=== PATIENT | male | born 1990 | race Two or more races ===

== ENCOUNTER 2016-10-26 20:06 | Emergency (ER) | payer OTHER ==
[~2016-10-26] VITALS: Ht 177.8 cm; Wt 86.2 kg
[~2016-10-26 20:06] MED LIST: NKM; PRILOSEC10 M1 ORAL
[2016-10-26 20:27] VITALS: BP 141/85
[2016-10-26 21:14] LABS: CALCIUM 9.5 mg/dL (8.6-10.2); CHLORIDE 97 mEQ/L (98-107); CREATININE 0.9 mg/dL (0.7-1.2); GLOMERULAR FILTRATION RATE > 60 mL/min (>60); HEMOLYSIS 5; POTASSIUM 3.6 mEQ/L (3.4-4.9); SODIUM 139 mEQ/L (135-145)
[2016-10-26] MEDS ORDERED: CORTISPORIN EAR10 ML RIGHT EAR (21:25)
[2016-10-26 21:31] LABS: ANION GAP 15 (5-15); CARBON DIOXIDE 27 mEQ/L (20-30)
[2016-10-26 21:43] LABS: BASOPHILS % (AUTO) 1.1 % (0.0-2.0); EOSINOPHILS % (AUTO) 0.7 % (0.0-3.0); LYMPHOCYTES % (AUTO) 35.8 % (20.0-45.0); MEAN CORPUSCULAR HEMOGLOBIN 28.5 PG (27.0-31.0); MEAN CORPUSCULAR HGB CONC 33.5 G/DL (32.0-36.0); MEAN CORPUSCULAR VOLUME 85 FL (80-99); MEAN PLATELET VOLUME 7.6 FL (6.5-10.1); MONOCYTES % (AUTO) 5.7 % (1.0-10.0); NEUTROPHILS % (AUTO) 56.8 % (45.0-75.0); PLATELET COUNT 214 K/UL (150-450); RED BLOOD COUNT 5.59 M/UL (4.70-6.10); RED CELL DISTRIBUTION WIDTH 11.5 % (11.6-14.8); WHITE BLOOD COUNT 7.9 K/UL (4.8-10.8)
[2016-10-26 21:59] VITALS: BP 129/80
--- NOTE | 2016-10-28 15:14 | Emergency Room Report ---
History of Present Illness General Chief Complaint: Generalized Weakness Source: Patient Present Illness HPI Patient present with complaints of dizziness patient has had off-and-on symptoms for over the past month Denies any headache Denies any chest pain Denies any back or flank pain Patient reports that he just there at a computer screen He also reports that he was cleaning his right ear And he said he might of injured it as there was blood coming out of it since Friday The dizziness however presented before this denies any dysuria frequency denies any neck pain or photophobia denies any change in medications he does feel that when he gets up in the morning the symptom is worse and also by noontime Allergies: Coded Allergies: No Known Allergies (Unverified , 04/28/16) Patient History Past Medical History: see triage record Pertinent Family History: none Reviewed Nursing Documentation: PMH: Agreed, PSxH: Agreed Nursing Documentation-PMH Past Medical History: No Stated History Review of Systems All Other Systems: negative except mentioned in HPI Physical Exam Vital Signs Date Time Temp Pulse Resp B/P Pulse Ox O2 Delivery O2 Flow Rate FiO2 10/26/16 20:12 98.2 75 16 133/93 100 Room Air Sp02 EP Interpretation: reviewed, normal General Appearance: well appearing, no apparent distress Head: normocephalic, atraumatic Eyes: bilateral eye EOMI, bilateral eye PERRL ENT: hearing grossly normal, normal pharynx, uvula midline, other - There was some dried blood in the canal, the tympanic membrane does show what appears to be findings in line with a partial perforation on the medial aspect Neck: full range of motion, supple, no meningismus, no bony tend Respiratory: lungs clear, normal breath sounds, no rhonchi, no respiratory distress, no retraction, no accessory muscle use Cardiovascular #1: normal peripheral pulses, regular rate, rhythm, no edema, no gallop, no JVD, no murmur Gastrointestinal: normal bowel sounds, non tender, soft, no mass, no organomegaly, non-distended, no guarding, no hernia, no pulsatile mass, no rebound Genitourinary: no CVA tenderness Musculoskeletal: normal inspection Neurologic: oriented x3, responsive, occupational analyst III-XII nml as tested, motor strength/ tone normal, sensory intact Psychiatric: mood/affect normal Skin: normal color, no rash, warm/dry, palpation normal Lymphatic: normal inspection, no adenopathy Medical Decision Making Diagnostic Impression: Primary Impression: dizziness Additional Impression: tm rupture ER Course Patient has multiple differentials considered Baseline blood work was initiated Patient is also on the teletypesetter monitor showing a sinus rhythm At this time continues to do well patient was given referral for the right eardrum Otherwise remains asymptomatic and hemodynamically stable And appropriate for close outpatient followup Labs Test 10/26/16 20:44 White Blood Count 7.9 K/UL (4.8-10.8) Red Blood Count 5.59 M/UL (4.70-6.10) Hemoglobin 15.9 G/DL (14.2-18.0) Hematocrit 47.5 % (42.0-52.0) Mean Corpuscular Volume 85 FL (80-99) Mean Corpuscular Hemoglobin 28.5 PG (27.0-31.0) Mean Corpuscular Hemoglobin Concent 33.5 G/DL (32.0-36.0) Red Cell Distribution Width 11.5 % (11.6-14.8) Platelet Count 214 K/UL (150-450) Mean Platelet Volume 7.6 FL (6.5-10.1) Neutrophils (%) (Auto) 56.8 % (45.0-75.0) Lymphocytes (%) (Auto) 35.8 % (20.0-45.0) Monocytes (%) (Auto) 5.7 % (1.0-10.0) Eosinophils (%) (Auto) 0.7 % (0.0-3.0) Basophils (%) (Auto) 1.1 % (0.0-2.0) Sodium Level 139 mEQ/L (135-145) Potassium Level 3.6 mEQ/L (3.4-4.9) Chloride Level 97 mEQ/L (98-107) Carbon Dioxide Level 27 mEQ/L (20-30) Anion Gap 15 (5-15) Blood Urea Nitrogen 8 mg/dL (7-23) Creatinine 0.9 mg/dL (0.7-1.2) Estimat Glomerular Filtration Rate > 60 mL/min (>60) Glucose Level 100 mg/dL (74-106) Calcium Level 9.5 mg/dL (8.6-10.2) Rhythm Strip Diag. Results EP Interpretation: yes Rate: 66 Rhythm: NSR, no PVC's, no ectopy Last Vital Signs Date Time Temp Pulse Resp B/P Pulse Ox O2 Delivery O2 Flow Rate FiO2 10/26/16 21:59 98.0 70 16 129/80 99 Room Air Status: improved Disposition: HOME, SELF-CARE Condition: Improved Scripts Neomycin/Polymyxin B Sulf/Hc* (CORTISPORIN EAR SOLUTION*) 10 Ml Solution 4 DROP RIGHT EAR QID for 5 Days, #10 ML 0 Refills Prov: GOLDIE GOLDSMITH D.O. 10/26/16 Referrals: [facility] (PCP) Patient Instructions: Dizziness, [id number], Eardrum Perforation, Easy-to- Read Additional Instructions: Patient is provided with the discharge instructions notified to follow up with primary doctor in the next 2-3 days otherwise return to the er with any worsening symptoms. GOLDIE GOLDSMITH D.O. Oct 28, 2016 15:14
== END 2016-10-26 22:00 | disposition home or self-care (01) ==
LOC: EMR 20:25
DX: R42 Dizziness and giddiness (principal); H72.91 Unspecified perforation of tympanic membrane, right ear
CPT/HCPCS: 36415; 80048; 85025; 99283

== ENCOUNTER → 2019-05-26 | Emergency (ER) | payer MEDICAID, OTHER ==
[~2019-05-26] VITALS: Ht 177.8 cm; Wt 83.9 kg
[~2019-05-26] MED LIST changes: +CORTISPORIN EAR10 ML RIGHT EAR; +TYLENOL EXTRA500 MG ORAL; +VOLTAREN100 G1 TP; +ZANTAC150 MG ORAL
[2019-05-26 15:07] VITALS: BP 136/73
--- NOTE | 2019-05-26 15:37 | Emergency Room Report ---
History of Present Illness General Chief Complaint: Pain Present Illness HPI 28-year-old male with no significant past medical history here complaining of 5 out of 10 pain in left shoulder that started 3 days ago. Patient denies heavy lifting, fall or injury. Patient reports that the pain is worse after sitting down or eating. Patient had an endoscopy done yesterday and was diagnosed with gastritis as well as hiatal hernia. Patient was prescribed omeprazole however has not started taking the medication yet as he has taken his medication the past and does not like how it makes him feel. Patient denies any pain radiation , tingling numbness. Has not taken medication for pain. Sitting comfortably denies chest pain, shortness of breath, palpitation, abdominal pain, nausea vomiting. Denies diarrhea, fever chills. Allergies: Coded Allergies: No Known Allergies (Unverified , 04/28/16) Patient History Past Medical History: see triage record Past Surgical History: unable to obtain Pertinent Family History: none Immunizations: UTD Reviewed Nursing Documentation: PMH: Agreed; PSxH: Agreed Review of Systems All Other Systems: negative except mentioned in HPI Physical Exam Vital Signs Date Time Temp Pulse Resp B/P (MAP) Pulse Ox O2 Delivery O2 Flow Rate FiO2 05/26/19 15:07 97.9 67 16 136/73 (94) 97 Room Air Sp02 EP Interpretation: reviewed, normal General Appearance: no apparent distress, alert, GCS 15, non-toxic Head: normocephalic, atraumatic Eyes: bilateral eye normal inspection, bilateral eye PERRL ENT: hearing grossly normal, normal pharynx, no angioedema, normal voice Neck: full range of motion, supple Respiratory: chest non-tender, lungs clear, normal breath sounds, speaking full sentences Cardiovascular #1: regular rate, rhythm, no edema Gastrointestinal: normal bowel sounds, non tender, soft, non-distended, no guarding, no rebound Genitourinary: normal inspection, no CVA tenderness Musculoskeletal: normal inspection, back normal, digits/nails normal, gait/ station normal, normal range of motion, non-tender, other - no impingement sign noted Neurologic: alert, oriented x3, responsive, motor strength/tone normal, sensory intact, speech normal Psychiatric: judgement/insight normal, memory normal, mood/affect normal, no suicidal/homicidal ideation Skin: no rash Lymphatic: no adenopathy Medical Decision Making PA Attestation All my diagnosis and treatment plans were reviewed ad discussed with my supervising physician Dr. Nari Diagnostic Impression: Primary Impression: Left shoulder strain Additional Impression: Gastritis ER Course 28-year-old male with no significant past medical history here complaining of 5 out of 10 pain in left shoulder that started 3 days ago. Patient denies heavy lifting, fall or injury. Patient reports that the pain is worse after sitting down or eating. Patient had an endoscopy done yesterday and was diagnosed with gastritis as well as hiatal hernia. Patient was prescribed omeprazole however has not started taking the medication yet as he has taken his medication the past and does not like how it makes him feel. Patient denies any pain radiation , tingling numbness. Has not taken medication for pain. Sitting comfortably denies chest pain, shortness of breath, palpitation, abdominal pain, nausea vomiting. Denies diarrhea, fever chills. Ddx considered but are not limited to : Shoulder sprain versus strain versus fracture, gastritis, hiatal hernia Vital signs: are WNL, pt. is afebrile H&PE are most consistent with: ORDERS: I offered patient a shoulder x-ray however he denied, ranitidine, Tylenol, Voltaren gel ED INTERVENTIONS: DISCHARGE: At this time pt. is stable for d/c to home. Will provide printed patient care instructions, and any necessary prescriptions. Care plan and follow up instructions have been discussed with the patient prior to discharge. Patient to follow-up with her primary care provider worsening symptoms return to the emergency room at this time it is musculoskeletal and also referred pain from gastritis if tingling or numbness further imaging recommended. Last Vital Signs Date Time Temp Pulse Resp B/P (MAP) Pulse Ox O2 Delivery O2 Flow Rate FiO2 05/26/19 15:07 97.9 67 16 136/73 (94) 97 Room Air Disposition: HOME, SELF-CARE Condition: Stable Scripts Acetaminophen* (TYLENOL EXTRA STRENGTH*) 500 Mg Tablet 500 MG ORAL Q8H PRN for Prn Headache/Temp > 101, #30 TAB 0 Refills Prov: Ifeanyi Salazar 05/26/19 Diclofenac Sodium (VOLTAREN) 100 Gm Gel..gram. 2 GM TP TID, #100 GM Prov: Ifeanyi Salazar 05/26/19 Ranitidine Hcl* (ZANTAC*) 150 Mg Tablet 150 MG ORAL DAILY, #30 TAB 0 Refills Prov: Ifeanyi Salazar 05/26/19 Patient Instructions: Gastritis, Adult, [id number], Shoulder Pain, Easy-to- Read Additional Instructions: Take medication as directed follow-up with your primary care provider and your casting director regarding her hiatal hernia and gastritis. Avoid strenuous physical activity Ifeanyi Salazar May 26, 2019 15:37
== END | disposition home or self-care (01) ==
LOC: EMR 15:35
DX: S46.912A Strain of unspecified muscle, fascia and tendon at shoulder and upper arm level, left arm, initial encounter (principal); K29.70 Gastritis, unspecified, without bleeding; K44.9 Diaphragmatic hernia without obstruction or gangrene; X58.XXXA Exposure to other specified factors, initial encounter; Y92.9 Unspecified place or not applicable
CPT/HCPCS: 99282

== ENCOUNTER 2019-11-10 20:45 | Emergency (ER) | payer OTHER ==
[~2019-11-10] VITALS: Ht 175.3 cm; Wt 88.5 kg
[2019-11-10 21:00] VITALS: BP 136/94
[2019-11-10] MEDS ORDERED: IBUPROFEN600 MG ORAL (21:12)
--- NOTE | 2019-11-10 21:13 | Emergency Room Report ---
History of Present Illness General Chief Complaint: Pain Source: Patient Present Illness HPI This a 28-year-old male with no past medical history. He presents with left arm pain. Is been ongoing for 5 days. Aching nature. Pain is to the bicep and going down to the left wrist forearm area on the ulnar side. Also with neck pain. Pain is achy and sharp in nature. 8 out of 10. Worse with movement of his neck. No trauma. No fever chills but no chest pain. Because been ongoing for 4 to 5 days he was concerned that may be his heart. Denies any other complaint. He was here in May 2019 for the same thing. Allergies: Coded Allergies: No Known Allergies (Unverified , 04/28/16) Patient History Past Medical History: see triage record, old chart reviewed Past Surgical History: none Pertinent Family History: none Social History: Denies: smoking Immunizations: other Reviewed Nursing Documentation: PMH: Agreed; PSxH: Agreed Nursing Documentation-PMH Past Medical History: No Stated History Hx Cardiac Problems: No Hx Hypertension: No Hx Pacemaker: No Hx Asthma: No Hx COPD: No Hx Diabetes: No Hx Cancer: No Hx Gastrointestinal Problems: No Hx Dialysis: No History Of Psychiatric Problem: No Hx Neurological Problems: No Hx Cerebrovascular Accident: No Hx Seizures: No Review of Systems Eye: Denies: eye pain, blurred vision ENT: Denies: ear pain, nose congestion, throat swelling Respiratory: Denies: cough, shortness of breath Cardiovascular: Denies: chest pain, palpitations Gastrointestinal: Denies: abdominal pain, diarrhea, nausea, vomiting Musculoskeletal: Denies: back pain, joint pain Skin: Denies: rash Neurological: Denies: headache, numbness Endocrine: Denies: increased thirst, increased urine Hematologic/Lymphatic: Denies: easy bruising All Other Systems: negative except mentioned in HPI Physical Exam Vital Signs Date Time Temp Pulse Resp B/P (MAP) Pulse Ox O2 Delivery O2 Flow Rate FiO2 11/10/19 20:48 97.7 75 17 136/94 (108) 96 Room Air Vitals normal Sp02 EP Interpretation: reviewed, normal General Appearance: well appearing, no apparent distress, alert Head: normocephalic, atraumatic Eyes: bilateral eye PERRL, bilateral eye EOMI ENT: hearing grossly normal, normal pharynx Neck: full range of motion, supple, no meningismus Respiratory: chest non-tender, lungs clear, normal breath sounds Cardiovascular #1: regular rate, rhythm, no murmur Gastrointestinal: normal bowel sounds, non tender, no mass, no organomegaly, no bruit, non-distended Musculoskeletal: back normal, normal range of motion, gait/station normal Psychiatric: mood/affect normal Medical Decision Making Diagnostic Impression: Primary Impression: Left arm pain ER Course Patient with left arm pain. This is most likely a cervical radiculopathy. No evidence of cauda equina syndrome, spinal epidural abscess or neoplastic process. No evidence of angina equivalent pain. EKG is normal. Will discharge home. EKG Diagnostic Results Rate: normal Rhythm: NSR ST Segments: no acute changes Last Vital Signs Date Time Temp Pulse Resp B/P (MAP) Pulse Ox O2 Delivery O2 Flow Rate FiO2 11/10/19 20:48 97.7 75 17 136/94 (108) 96 Room Air Status: unchanged Disposition: HOME, SELF-CARE Condition: Stable Scripts Ibuprofen* (MOTRIN*) 600 Mg Tablet 600 MG ORAL THREE TIMES A DAY, #30 TAB 0 Refills Prov: Gil Mora MD 11/10/19 Additional Instructions: Follow-up with your doctor in 7 days. If continue with pain, you may need an MRI of your neck. Return if symptoms worsen. Gil Mora MD Nov 10, 2019 21:13
[2019-11-10 21:25] VITALS: BP 136/94
--- NOTE | 2019-11-10 21:25 | NUR ---
ER DISCHARGE NOTE: Pt seen by MD for left arm pain, no injury or chest pain or other complaints. Patient is cleared to be discharged per ERMD, pt is aox4, on room air, with stable vital signs. pt was given dc and prescription instructions, pt was able to verbalize understanding, pt id band and iv site removed without complications. pt is able to ambulate with steady gait. pt took all belongings.
== END 2019-11-10 21:25 | disposition home or self-care (01) ==
LOC: EMR 21:25
DX: M79.602 Pain in left arm (principal)
CPT/HCPCS: 93005; Z7502; 99283